=== PATIENT | male | born 1970 | race Caucasian/White ===

== ENCOUNTER 2020-03-07 05:06 | Emergency (ER) | payer MEDICARE ==
[~2020-03-07] VITALS: Ht 170.2 cm; Wt 118.2 kg
[2020-03-07 05:08] VITALS: PULSE 73; TEMP 97.7
[2020-03-07 06:30] VITALS: BP 134/84
== END 2020-03-07 07:40 | disposition home or self-care (01) ==
LOC: COL.ER 05:06
DX: R10.11 Right upper quadrant pain (principal); R10.12 Left upper quadrant pain